=== PATIENT | male | born 1970 | race Caucasian/White ===

== ENCOUNTER 2018-02-06 17:08 | Emergency (ER) | payer OTHER ==
[~2018-02-06] VITALS: Ht 188 cm; Wt 134.5 kg
[2018-02-06 17:16] VITALS: TEMP 37.1; Ht 188 cm; Wt 134.5 kg
[2018-02-06] MEDS ORDERED: ALBUT/IPRATROP 3MG/0.5MG NEB 3 ML VIAL INH STA ×2 (19:11→20:34)
[2018-02-06] MEDS ORDERED: METHYLPREDNISOLONE 125 MG VIAL IV STA (19:11)
[2018-02-06 19:20] VITALS: O2SAT 95
[2018-02-06 19:45] LABS: BASO % 0.6 %; BASO ABS # 0.06 K/uL (0-0.2); EOS % 2.5 %; EOS ABS # 0.26 K/uL (0-0.5); HEMATOCRIT 45.8 % (42-52); HEMOGLOBIN 15.8 g/dL (14.0-18.0); IG# 0.03 K/uL (0.00-0.02); LYMPH ABS # 2.63 K/uL (1.2-3.4); MEAN CELL VOLUME 89.1 fL (80-100); MEAN CORPUSCULAR HEMOGLOBIN 30.7 pg (25-34); MEAN CORPUSCULAR HGB CONC 34.5 g/dl (32-36); MEAN PLATELET VOLUME 10.3 fL (7.4-10.4); MONO % 8.8 %; MONO ABS # 0.92 K/uL (0.11-0.59); NEUT % 62.8 %; PLATELET COUNT 230 K/uL (130-400); RED CELL DISTRIBUTION WIDTH CV 12.4 % (11.5-14.5)
[2018-02-06 20:07] LABS: ALBUMIN 3.4 gm/dl (3.4-5.0); CREATININE 0.94 mg/dl (0.60-1.40); POTASSIUM 3.3 mmol/L (3.5-5.1)
--- NOTE | 2018-02-06 20:10 | DIAGNOSTIC IMAGING REPORT ---
CHEST ONE VIEW PORTABLE CLINICAL HISTORY: 47 years-old Male presenting with EVALUATE RESPIRATORY DISTRESS.DYSPNEA. TECHNIQUE: Portable upright AP view of the chest was obtained. COMPARISON: None. FINDINGS: Atherosclerosis of aortic arch. Cardiac silhouette mildly enlarged. No focal opacity. No large effusion or pneumothorax. Osseous structures normal. Upper abdomen normal. IMPRESSION: 1. Apparent cardiac silhouette enlargement. Otherwise no acute cardiopulmonary disease. Electronically signed by: Christ Saldana M.D. 02/06/2018 8:09 PM Dictated Date/Time: 02/06/2018 8:08 PM
[2018-02-06 20:14] LABS: CKMB 4.5 ng/ml (0.5-3.6); TOTAL PROTEIN 7.6 gm/dl (6.4-8.2)
[2018-02-06] MEDS ORDERED: METOPROLOL TARTRATE 1 MG/ML VIAL IV STA (21:32)
[2018-02-06] MEDS ORDERED: ASPIRIN 81 MG CHEW PO STA (21:32)
[2018-02-06] MEDS ORDERED: NITROGLYCERIN 2% OINTMENT 30GM TUBE EXT ONE (21:45)
[2018-02-06] MEDS ORDERED: OPTIRAY 320 IV PRN (22:15)
--- NOTE | 2018-02-06 22:22 | DIAGNOSTIC IMAGING REPORT ---
(CHEST FOR PE) ANGIO WITH CLINICAL HISTORY: 47 years-old Male presenting with ^SOB, +dimer. TECHNIQUE: Multidetector CT angiography of the chest was performed after administration of intravenous contrast. 3-D volumetric and/or maximum intensity projection (MIP) images were subsequently reconstructed for review. IV contrast: None. A dose lowering technique was used consistent with the principles of ALARA (as low as reasonably achievable). COMPARISON: None. CT DOSE (mGy.cm): The estimated cumulative dose is 750.53 mGy.cm. FINDINGS: Port Crane Operator topogram: Unremarkable. Pulmonary vasculature: The study is suboptimal for the assessment of the pulmonary vascular tree secondary to timing of the contrast bolus and respiratory motion artifact. Allowing for limited image quality, no central filling defect to suggest pulmonary embolus. Main pulmonary artery is not enlarged. No flattening of the interventricular septum. No intracardiac filling defect. No reflux of contrast into the hepatic veins. Remaining chest: On soft tissue windows, normal thyroid and thoracic inlet. No axillary, supraclavicular, hilar, or mediastinal lymphadenopathy. Atherosclerosis of the aorta. Multichamber enlargement of the heart. Coronary artery calcification. No pericardial or pleural effusion. Hepatic steatosis. Cholelithiasis. On lung windows, respiratory motion artifact markedly degrades evaluation of the lung parenchyma. Allowing for this, no focal nodule or opacity. Central airways patent. On bone windows, normal osseous structures. IMPRESSION: 1. Allowing for suboptimal image quality, no evidence of pulmonary embolus. No acute intrathoracic pathology. 2. Cardiomegaly. 3. Hepatic steatosis. 4. Cholelithiasis. Electronically signed by: Christ Saldana M.D. 02/06/2018 10:20 PM Dictated Date/Time: 02/06/2018 10:12 PM
--- NOTE | 2018-02-07 01:33 | Medical Consult ---
Consultation Date of Consultation: Feb 07, 2018. Attending Physician: Reason for Consultation: Possible ER admission History of Present Illness Mr. Spear is a 47yo C male with history of HTN presenting with complaint of cough x 6-8 weeks. He states that it started with an episode of laryngitis leading to 3 weeks of productive cough which improved for approximately one week then resumed for the last three weeks. He states the cough is occasionally productive for clear sputum. It is worse at night and in the morning. He also reports nasal congestion and post nasal drip. He denies chest pain, shortness of breath, wheeze. He denies hemoptysis, sore throat, weight loss, chest pain or fevers. He has no TB exposure risk. He has been taking Mucinex for the cough which he states makes it worse due to drying the secretions and making them thicker. Patient is an active 1.5ppd smoker for the past 30 years but has decreased his cigarettes over the last few weeks due to cough. When he arrived to the ER he was found to be hypertensive at 170/130 and tachycardic. He was administered [id number], Nitro paste, Lopressor 5mg IV, DuoNebs x 2 and Solumedrol 125mg IV. He states he is feeling well at present and wishes to go home. Patient has been diagnosed with HTN in the past and was on medications but is not taking anything presently. Past Medical/Surgical History 1. Elevated troponin 2. Hypertension 3. Cough 4. Tobacco abuse Family History Cancer Hypertension Social History Smoking Status: Current Every Day Smoker Smokeless Tobacco Use: No Alcohol Use: occasionally Drug Use: none Marital Status: single Housing Status: lives alone Occupation Status: employed Allergies Uncoded Allergies: N (Allergy, Unknown, 12/24/02) NKDA (Allergy, Unknown, 12/24/02) Home Medications Denies daily medication use Current Inpatient Medications Current Inpatient Medications Medications (Trade) Dose Ordered Sig/Samantha Route Start Time Stop Time Status Last Admin Dose Admin Ioversol (Optiray 320) 110 ml UD PRN IV 02/06/18 22:15 02/10/18 22:14 Review of Systems Constitutional: No fever, No chills, No sweats, No weight loss, No weakness, No fatigue Eyes: No redness, No discharge ENT: + nasal symptoms, No unusual epistaxis, No sore throat, No trouble swallowing Respiratory: + cough, + sputum, + wheezing, No shortness of breath, No dyspnea on exertion, No dyspnea at rest, No hemoptysis Cardiovascular: No chest pain, No orthopnea, No edema, No palpitations Abdomen: No pain, No nausea, No vomiting, No diarrhea Physical Exam Date Time Temp Pulse Resp B/P (MAP) Pulse Ox O2 Delivery O2 Flow Rate FiO2 02/07/18 00:16 126/75 02/07/18 00:05 107 25 02/07/18 00:00 159/103 02/06/18 23:45 147/104 02/06/18 23:35 109 20 02/06/18 23:30 138/98 02/06/18 23:28 110 19 02/06/18 23:16 108 02/06/18 23:16 127/102 02/06/18 23:13 109 27 02/06/18 23:01 156/119 02/06/18 22:58 106 30 02/06/18 22:46 155/116 02/06/18 22:46 108 18 155/116 94 Room Air 02/06/18 22:43 107 16 02/06/18 22:30 173/120 02/06/18 22:28 104 17 02/06/18 22:23 161/102 02/06/18 22:23 118 161/102 02/06/18 21:30 116 26 94 Room Air 02/06/18 21:00 108 22 177/121 90 02/06/18 20:50 160/111 02/06/18 20:30 109 22 93 02/06/18 20:29 108 22 160/111 93 Room Air 02/06/18 19:34 104 24 170/108 94 Room Air 02/06/18 19:22 108 02/06/18 19:20 95 Room Air 02/06/18 17:16 37.1 109 20 177/133 92 Room Air General Appearance: WD/WN, no apparent distress Head: normocephalic, atraumatic Eyes: normal inspection, PERRL, EOMI ENT: hearing grossly normal (cobblestoning of posterior pharynx with PND) Neck: supple, no adenopathy, no JVD Respiratory/Chest: chest non-tender, no respiratory distress, no accessory muscle use Cardiovascular: regular rate, rhythm, no edema, no gallop, no JVD, no murmur, normal peripheral pulses Abdomen/GI: normal bowel sounds, non tender, soft, no organomegaly Laboratory Results Last 24 Hours Test 02/06/18 19:27 02/06/18 20:45 02/07/18 00:30 White Blood Count 10.50 K/uL Red Blood Count 5.14 M/uL Hemoglobin 15.8 g/dL Hematocrit 45.8 % Mean Corpuscular Volume 89.1 fL Mean Corpuscular Hemoglobin 30.7 pg Mean Corpuscular Hemoglobin Concent 34.5 g/dl Platelet Count 230 K/uL Mean Platelet Volume 10.3 fL Neutrophils (%) (Auto) 62.8 % Lymphocytes (%) (Auto) 25.0 % Monocytes (%) (Auto) 8.8 % Eosinophils (%) (Auto) 2.5 % Basophils (%) (Auto) 0.6 % Neutrophils # (Auto) 6.60 K/uL Lymphocytes # (Auto) 2.63 K/uL Monocytes # (Auto) 0.92 K/uL Eosinophils # (Auto) 0.26 K/uL Basophils # (Auto) 0.06 K/uL RDW Standard Deviation 40.0 fL RDW Coefficient of Variation 12.4 % Immature Granulocyte % (Auto) 0.3 % Immature Granulocyte # (Auto) 0.03 K/uL Sodium Level 135 mmol/L Potassium Level 3.3 mmol/L Chloride Level 102 mmol/L Carbon Dioxide Level 25 mmol/L Anion Gap 8.0 mmol/L Blood Urea Nitrogen 7 mg/dl Creatinine 0.94 mg/dl Est Creatinine Clear Calc Drug Dose 138.7 ml/min Estimated GFR () 109.9 Estimated GFR (Non- 94.8 BUN/Creatinine Ratio 7.7 Random Glucose 103 mg/dl Calcium Level 9.0 mg/dl Total Bilirubin 0.6 mg/dl Aspartate Amino Transf (AST/SGOT) 38 U/L Alanine Aminotransferase (ALT/SGPT) 51 U/L Alkaline Phosphatase 81 U/L Total Creatine Kinase 822 U/L Creatine Kinase MB 4.5 ng/ml Creatine Kinase MB Ratio 0.5 Pro-B-Type Natriuretic Peptide 314 pg/ml Total Protein 7.6 gm/dl Albumin 3.4 gm/dl Globulin 4.2 gm/dl Albumin/Globulin Ratio 0.8 Bedside D-Dimer > 450 ng/mlFEU Bedside Troponin I 0.050 ng/ml Urine Color YELLOW Urine Appearance CLEAR Urine pH 6.0 Urine Specific Leslie > 1.045 Urine Protein NEG Urine Glucose (UA) NEG Urine Ketones NEG Urine Occult Blood NEG Urine Nitrite NEG Urine Bilirubin NEG Urine Urobilinogen NEG Urine Leukocyte Esterase NEG Assessment & Plan 37yo male with history of HTN, active smoker presenting with 6-8 week history of cough. Patient hypertensive in the ER 170/130 with mild elevation of troponin of 0.05. He denies chest pain/palpitations, no exertional symptoms. 1. Elevated troponin - no evidence of ischemia on EKG, patient without chest pain or symptoms otherwise concerning for ACS. Possibly secondary to hypertensive episode -Repeat troponins to assess trend. If decreasing, patient can be discharged home with outpatient followup. If increasing then he will be admitted for further cardiac workup - Recommend ASA 81mg po daily 2. Hypertension - patient with history of same, not presently on medications. Repeat BP during encounter 148/101. He needs to be on antihypertensive medications. -Recommend discharge with prescription for chlorthalidone 25mg po daily. He will most likely need a second antihypertensive agent to achieve target blood pressure, however, this will be better addressed with his PCP -Recommend K supplementation while in ER as K=3.3 3. Cough - no evidence of PNA, no PE. Most likely secondary to URI with post- infectious bronchitis or RAD. Patient is a heavy smoker and most likely has some component of pulmonary compromise. -Recommend discharge on a short steroid taper and give him a prescription for an albuterol inhaler to be used as needed for SOB or wheeze 4. Tobacco abuse - patient actively using 1.5 ppd for the last 30 years. Discussed briefly the health risks associated with this behavior and encouraged quitting. Patient states that he may use this illness as a reason to quit smoking. Recommend followup with PCP within 1 week for chronic medical problems Thank you for this consult. Please notify me if troponin is elevated and patient requires hospital admission.
--- NOTE | 2018-02-07 01:38 | EMERGENCY ROOM VISIT NOTE ---
History Report prepared by Edouard: Yari franks Under the Supervision of: Dr. Sy Figueroa M.D. First contact with patient: 19:00 Chief Complaint: REFERRED BY DOCTOR Stated Complaint: HEART ISSUES History of Present Illness The patient is a 47 year old male who presents to the Emergency Room due to a referral by a doctor that occurred just prior to arrival. The patient states that he went to [facility] for a cough that he has had for 2 months. The patient states that they were concerned about his heart and sent him here .He states that he gets short of breath when lying down and when he coughs. He notes that he has chest pain when he coughs because it is sore from coughing and he coughed so much that he vomited twice last night. The patient complains of sinus drainage. He does not have any baseline chest pain otherwise. He notes that he has a history of hypertension and was on medication for it at one point, but isn't anymore. He notes he is a smoker and has been smoking less since he has had difficulty breathing. He notes he smokes about a pack a day and has been for 30 years. Pt denies change in weight, swelling in his legs, LOC, headache, fevers, chills , diaphoresis, visual changes, neck pain, nausea, abdominal pain, back pain, melena, hematochezia, urinary symptoms, numbness, weakness, lymphadenopathy, rash, or other complaints. Source of History: patient Onset: prior to arrival Position: other (global) Quality: other (referral/ cough) Timing: other (episode) Associated Symptoms: + chest pain, + SOB, + vomiting Note: The patient complains of sinus drainage. Review of Systems See HPI for pertinent positives and negatives. A total of ten systems were reviewed and were otherwise negative. Past Medical & Surgical Medical Problems: (1) HTN (hypertension) Family History Cancer Hypertension Social History Smoking Status: Current Every Day Smoker Alcohol Use: occasionally Marital Status: single Housing Status: lives alone Occupation Status: employed Current/Historical Medications Scheduled Chlorthalidone (Hygroton), 25 MG PO DAILY Prednisone (Prednisone), 50 MG PO DAILY Allergies Uncoded Allergies: N (Allergy, Unknown, 12/24/02) NKDA (Allergy, Unknown, 12/24/02) Physical Exam Vital Signs Date Time Temp Pulse Resp B/P (MAP) Pulse Ox O2 Delivery O2 Flow Rate FiO2 02/07/18 02:06 107 18 133/85 94 Room Air 02/07/18 01:10 148/101 02/07/18 01:09 148/104 02/07/18 01:08 146/104 02/07/18 00:21 108 24 02/07/18 00:16 126/75 02/07/18 00:05 107 25 02/07/18 00:00 159/103 02/06/18 23:45 147/104 02/06/18 23:35 109 20 02/06/18 23:30 138/98 02/06/18 23:28 110 19 02/06/18 23:16 108 02/06/18 23:16 127/102 02/06/18 23:13 109 27 02/06/18 23:01 156/119 02/06/18 22:58 106 30 02/06/18 22:46 155/116 02/06/18 22:46 108 18 155/116 94 Room Air 02/06/18 22:43 107 16 02/06/18 22:30 173/120 02/06/18 22:28 104 17 02/06/18 22:23 161/102 02/06/18 22:23 118 161/102 02/06/18 21:30 116 26 94 Room Air 02/06/18 21:00 108 22 177/121 90 02/06/18 20:50 160/111 02/06/18 20:30 109 22 93 02/06/18 20:29 108 22 160/111 93 Room Air 02/06/18 19:34 104 24 170/108 94 Room Air 02/06/18 19:22 108 02/06/18 19:20 95 Room Air 02/06/18 17:16 37.1 109 20 177/133 92 Room Air Physical Exam GENERAL: Awake, alert, well-appearing, in no distress HENT: Normocephalic, atraumatic. Oropharynx unremarkable. EYES: Normal conjunctiva. Sclera non-icteric. NECK: Supple. No nuchal rigidity. FROM. No masses. RESPIRATORY: Diminished breath sounds. Scattered wheezes. Heavy cough. No rales. Normal respiratory effort. CARDIAC: Tachycardic rate. Normal rhythm. No murmurs. No rubs. Extremities warm and well perfused. Pulses equal. No JVD. GI: Soft, non-distended. No tenderness to palpation. No rebound or guarding. No masses. RECTAL: Deferred. MUSCULOSKELETAL: Atraumatic. Chest examination reveals no tenderness. The back is symmetrical on inspection without obvious abnormality. There is no CVA tenderness to palpation. No joint edema. LOWER EXTREMITIES: Calves are equal size bilaterally and non-tender. No edema. No discoloration. NEURO: Normal sensorium. No sensory or motor deficits noted. SKIN: No rash or jaundice noted. Medical Decision & Procedures ER Provider Diagnostic Interpretation: Radiology results as stated below per my review and radiologist interpretation: CHEST ONE VIEW PORTABLE CLINICAL HISTORY: 47 years-old Male presenting with EVALUATE RESPIRATORY DISTRESS.DYSPNEA. TECHNIQUE: Portable upright AP view of the chest was obtained. COMPARISON: None. FINDINGS: Atherosclerosis of aortic arch. Cardiac silhouette mildly enlarged. No focal opacity. No large effusion or pneumothorax. Osseous structures normal. Upper abdomen normal. IMPRESSION: 1. Apparent cardiac silhouette enlargement. Otherwise no acute cardiopulmonary disease. Electronically signed by: Christ Saldana M.D. 02/06/2018 8:09 PM Dictated Date/Time: 02/06/2018 8:08 PM (CHEST FOR PE) ANGIO WITH CLINICAL HISTORY: 47 years-old Male presenting with ^SOB, +dimer. TECHNIQUE: Multidetector CT angiography of the chest was performed after administration of intravenous contrast. 3-D volumetric and/or maximum intensity projection (MIP) images were subsequently reconstructed for review. IV contrast: None. A dose lowering technique was used consistent with the principles of ALARA (as low as reasonably achievable). COMPARISON: None. CT DOSE (mGy.cm): The estimated cumulative dose is 750.53 mGy.cm. FINDINGS: Assembler Body topogram: Unremarkable. Pulmonary vasculature: The study is suboptimal for the assessment of the pulmonary vascular tree secondary to timing of the contrast bolus and respiratory motion artifact. Allowing for limited image quality, no central filling defect to suggest pulmonary embolus. Main pulmonary artery is not enlarged. No flattening of the interventricular septum. No intracardiac filling defect. No reflux of contrast into the hepatic veins. Remaining chest: On soft tissue windows, normal thyroid and thoracic inlet. No axillary, supraclavicular, hilar, or mediastinal lymphadenopathy. Atherosclerosis of the aorta. Multichamber enlargement of the heart. Coronary artery calcification. No pericardial or pleural effusion. Hepatic steatosis. Cholelithiasis. On lung windows, respiratory motion artifact markedly degrades evaluation of the lung parenchyma. Allowing for this, no focal nodule or opacity. Central airways patent. On bone windows, normal osseous structures. IMPRESSION: 1. Allowing for suboptimal image quality, no evidence of pulmonary embolus. No acute intrathoracic pathology. 2. Cardiomegaly. 3. Hepatic steatosis. 4. Cholelithiasis. Electronically signed by: Christ Saldana M.D. 02/06/2018 10:20 PM Dictated Date/Time: 02/06/2018 10:12 PM Laboratory Results 02/06/18 19:27 Red Blood Count 5.14, Mean Corpuscular Volume 89.1, Mean Corpuscular Hemoglobin 30.7, Mean Corpuscular Hemoglobin Concent 34.5, Mean Platelet Volume 10.3, Neutrophils (%) (Auto) 62.8, Lymphocytes (%) (Auto) 25.0, Monocytes (%) (Auto) 8.8, Eosinophils (%) (Auto) 2.5, Basophils (%) (Auto) 0.6, Neutrophils # (Auto) 6.60, Lymphocytes # (Auto) 2.63, Monocytes # (Auto) 0.92, Eosinophils # (Auto) 0.26, Basophils # (Auto) 0.06 02/06/18 19:27 Test 02/06/18 19:27 02/06/18 20:45 02/07/18 00:30 02/07/18 01:29 White Blood Count 10.50 K/uL (4.8-10.8) Red Blood Count 5.14 M/uL (4.7-6.1) Hemoglobin 15.8 g/dL (14.0-18.0) Hematocrit 45.8 % (42-52) Mean Corpuscular Volume 89.1 fL (80-100) Mean Corpuscular Hemoglobin 30.7 pg (25-34) Mean Corpuscular Hemoglobin Concent 34.5 g/dl (32-36) Platelet Count 230 K/uL (130-400) Mean Platelet Volume 10.3 fL (7.4-10.4) Neutrophils (%) (Auto) 62.8 % Lymphocytes (%) (Auto) 25.0 % Monocytes (%) (Auto) 8.8 % Eosinophils (%) (Auto) 2.5 % Basophils (%) (Auto) 0.6 % Neutrophils # (Auto) 6.60 K/uL (1.4-6.5) Lymphocytes # (Auto) 2.63 K/uL (1.2-3.4) Monocytes # (Auto) 0.92 K/uL (0.11-0.59) Eosinophils # (Auto) 0.26 K/uL (0-0.5) Basophils # (Auto) 0.06 K/uL (0-0.2) RDW Standard Deviation 40.0 fL (36.4-46.3) RDW Coefficient of Variation 12.4 % (11.5-14.5) Immature Granulocyte % (Auto) 0.3 % Immature Granulocyte # (Auto) 0.03 K/uL (0.00-0.02) Anion Gap 8.0 mmol/L (3-11) Est Creatinine Clear Calc Drug Dose 138.7 ml/min Estimated GFR () 109.9 Estimated GFR (Non- 94.8 BUN/Creatinine Ratio 7.7 (10-20) Calcium Level 9.0 mg/dl (8.5-10.1) Total Bilirubin 0.6 mg/dl (0.2-1) Aspartate Amino Transf (AST/SGOT) 38 U/L (15-37) Alanine Aminotransferase (ALT/SGPT) 51 U/L (12-78) Alkaline Phosphatase 81 U/L (45-117) Total Creatine Kinase 822 U/L (39-308) Creatine Kinase MB 4.5 ng/ml (0.5-3.6) Creatine Kinase MB Ratio 0.5 (0-3.0) Pro-B-Type Natriuretic Peptide 314 pg/ml (0-450) Total Protein 7.6 gm/dl (6.4-8.2) Albumin 3.4 gm/dl (3.4-5.0) Globulin 4.2 gm/dl (2.5-4.0) Albumin/Globulin Ratio 0.8 (0.9-2) Bedside D-Dimer > 450 ng/mlFEU (0-450) Urine Color YELLOW Urine Appearance CLEAR (CLEAR) Urine pH 6.0 (4.5-7.5) Urine Specific [place] > 1.045 (1.000-1.030) Urine Protein NEG (NEG) Urine Glucose (UA) NEG (NEG) Urine Ketones NEG (NEG) Urine Occult Blood NEG (NEG) Urine Nitrite NEG (NEG) Urine Bilirubin NEG (NEG) Urine Urobilinogen NEG (NEG) Urine Leukocyte Esterase NEG (NEG) Bedside Troponin I 0.040 ng/ml (0-0.045) Laboratory results reviewed by me Medications Administered Medications (Trade) Dose Ordered Sig/Samantha Route Start Time Stop Time Status Last Admin Dose Admin Albuterol/ Ipratropium (Duoneb) 3 ml NOW STAT INH 02/06/18 19:11 02/06/18 19:12 DC 02/06/18 19:22 3 ML Methylprednisolone Sodium Succinate (Solu-Medrol IV) 125 mg NOW STAT IV 02/06/18 19:11 02/06/18 19:12 DC 02/06/18 19:34 125 MG Albuterol/ Ipratropium (Duoneb) 3 ml NOW STAT INH 02/06/18 20:34 02/06/18 20:35 DC 02/06/18 20:37 3 ML Aspirin (Aspirin Chew) 324 mg NOW STAT PO 02/06/18 21:32 02/06/18 21:33 DC 02/06/18 22:23 324 MG Metoprolol Tartrate (Lopressor Iv) 5 mg NOW STAT IV 02/06/18 21:32 02/06/18 21:33 DC 02/06/18 22:23 5 MG Nitroglycerin (Nitroglycerin 2% Oint) 0.5 inch NOW ONCE EXT 02/06/18 21:45 02/06/18 21:46 DC 02/06/18 22:23 0.5 INCH ECG Per My Interpretation Indication: SOB/dyspnea Rate (beats per minute): 101 Rhythm: sinus tachycardia Findings: PAC, no acute ischemic change, other (left atrial enlargement) ED Course 1903: The patient was evaluated in room C1B. A complete history and physical exam was performed. Review of EMR showed a history of hypertension. Otherwise no record of contributing issues found. The patient went to [facility] and they were concerned for CHF so sent him here. 1910: Ordered Solu-Medrol 125 mg IV, Duoneb 3 ml INH. 1999: I reevaluated the patient and he is doing well. 2033: Ordered Duoneb 3 ml INH. 2128: I reevaluated the patient and updated him on his results. I notified him the he is going to CT. 2131: Ordered Lopressor Iv 5 mg IV, Aspirin 324 mg PO. 2144: Ordered Nitroglycerin 0.5 inch EXT. 2324: I reevaluated the patient and he is doing well. I updated him on the plan and he verbally agrees and understands. 2339: Discussed the patient's case with Dr. Dow- [facility] [facility]. The patient will be evaluated for further treatment and disposition. 0117: Hospitalist recommended repeat troponin and medication management if troponin normal. Patient reassessed. Troponin ordered. 0210: Troponin negative. Discussed with Dr. Dow. Reevaluated the patient. He is comfortable and prefers outpatient treatment. Chlorthalidone, prednisone , albuterol MDI, Hycodan home pack ordered. Return instructions outlined. Patient discharged. Medical Decision Triage Nursing notes reviewed and agree them. The patient's history was concerning for shortness of breath, cough, chest pain. Differential diagnosis: Etiologies such as cardiac ischemia, aortic dissection, pulmonary embolism, pneumonia, pneumothorax, musculoskeletal, infections, pericarditis, myocarditis , esophageal rupture, gastrointestinal, as well as others were entertained. Physical examination: As above. ER treatment provided: DuoNeb 2 IV Solu-Medrol On reassessment the patient felt better. Aspirin Nitropaste 1/2 inch Lopressor 5 mg IV On reassessment the patient was doing significantly better. Oral potassium Oral prednisone Albuterol MDI Oral chlorthalidone 25 mg Diagnostic interpretation by me: The electrocardiogram revealed tachycardia without acute ischemic change. The labs revealed an unremarkable CBC and chemistry panel. The patient had an elevated d-dimer and mild elevation of his troponin. Total CK moderately elevated. Urinalysis negative. Repeat troponin was normal. Negative delta. Imaging studies: Chest x-ray as above Consultation: A consultation was placed with the hospitalist, Dr. Dow. The case was discussed and diagnostics were reviewed. The patient was evaluated in the ER for further treatment. She requested a repeat troponin and this was performed. Repeat troponin was negative. She recommended close outpatient follow-up. Case management was notified to contact his primary clinic in the morning. The patient is comfortable with going home and prefers to do so. Internal medicine recommended initiation of chlorthalidone 25 mg, a prednisone course, albuterol, and baby aspirin. This was done. Patient is a long history of smoking and has had respiratory issues. I suspect this may be the earliest problems with COPD. He had tachycardia and hypertension. He was previously on antihypertensives. The troponin may be just from the combination of hypertension and tachycardia which is likely secondary to his respiratory issues. The patient will be treated symptomatically. He was also given a Hycodan home pack. By the evaluation outlined above other emergent etiologies such as those listed in the differential, as well as others, were deemed relatively unlikely. The patient was educated about the findings as listed above. All questions were answered and the patient was pleased with the treatment. Return instructions were outlined and the patient was discharged in stable condition. The patient was referred to his primary clinic tomorrow for follow-up for a recheck of the current condition. Medication Reconcilliation Current Medication List: was personally reviewed by me Blood Pressure Screening Patient's blood pressure: Elevated blood pressure Will be further monitored by the hospitalist. Consults Time Called: [id number] Consulting Physician: Dr. Caitlin THAKKAR Hospitalist Returned Call: 7 Discussed the patient's case with Dr. Caitlin THAKKAR Hospitalist. The patient will be evaluated for further treatment and disposition. Impression Primary Impression: SOB (shortness of breath) Additional Impressions: Elevated troponin Tachycardia Scribe Attestation The scribe's documentation has been prepared under my direction and personally reviewed by me in its entirety. I confirm that the note above accurately reflects all work, treatment, procedures, and medical decision making performed by me. Departure Information Dispostion Being Evaluated By Hospitalist Prescriptions Prednisone (Prednisone) 50 Mg Tab 50 MG PO DAILY for 4 Days, #4 TAB Prov: Sy Figueroa MD 02/07/18 Chlorthalidone (HYGROTON) 25 Mg Tab 25 MG PO DAILY for 15 Days, #15 TAB Prov: Sy Figueroa MD 02/07/18 Referrals Jimbo Worthington M.D. (PCP) Patient Instructions My [facility] Additional Instructions Baby aspirin 81 mg daily until directed otherwise by your primary physician Chlorthalidone 25 mg daily for blood pressure until directed otherwise by your primary physician. Albuterol Inhaler: Take 2 puffs four times daily for five days, then as needed. Prednisone 50mg: Once daily until the prescription is finished. It is best to take this earlier in the day as some patients note occasional difficulty falling asleep when taken in the late evening. Hycodan syrup: use one teaspoon every six hours only as needed for severe cough. May cause drowsiness. No driving if using this medication. Acetaminophen(Tylenol) may be used for fever or pain. Use 1000mg every six hours as needed. Avoid using more than 4000mg in a 24 hour period. Review the package insert for all your medications. This is necessary as important health information is provided for your benefit and current care. Rest and drink plenty of fluids. Avoid smoke/smoking, fumes, dust, or any triggers in the past that may have affected your breathing. Continue current medications. Return to the ER for chest pain, difficulty breathing, fevers, vomiting, worsening of your condition, or as needed. Follow up with your primary physician later this morning to schedule an appointment for a recheck of your current condition. ER case management will also be notifying the clinic to assist you in this appointment follow-up. Problem Qualifiers
[2018-02-07] MEDS ORDERED: CHLORTHALIDONE 25 MG TAB PO STA (02:10)
[2018-02-07] MEDS ORDERED: POTASSIUM CHLORIDE 10 MEQ TABCR PO STA (02:10)
[2018-02-07] MEDS ORDERED: HYG/25 PO (02:13)
[2018-02-07] MEDS ORDERED: PRED50TA PO (02:13)
[2018-02-07] MEDS ORDERED: ALBUTEROL HFA 8 GM INHALER INH ONE (02:15)
[2018-02-07] MEDS ORDERED: HYCODAN 60ML BOTTLE HOMEPACK PO ONE (02:15)
[2018-02-07 02:35] VITALS: BP 141/96; PULSE 108; O2SAT 95
== END 2018-02-07 02:36 | disposition home or self-care (01) ==
LOC: C.EDB 17:09 → C.EDC 02-07 02:36
DX: R06.02 Shortness of breath (principal); R79.89 Other specified abnormal findings of blood chemistry; R00.0 Tachycardia, unspecified; R05 Cough; R11.10 Vomiting, unspecified; I10 Essential (primary) hypertension; F17.210 Nicotine dependence, cigarettes, uncomplicated; Z82.49 Family history of ischemic heart disease and other diseases of the circulatory system

== ENCOUNTER → 2018-02-26 | Outpatient (CLI) | payer OTHER ==
[2018-02-26 13:12] LABS: HEMATOCRIT 46.4 % (42-52); HEMOGLOBIN 15.5 g/dL (14.0-18.0); MEAN CELL VOLUME 91.3 fL (80-100); MEAN CORPUSCULAR HEMOGLOBIN 30.5 pg (25-34); MEAN CORPUSCULAR HGB CONC 33.4 g/dl (32-36); MEAN PLATELET VOLUME 10.3 fL (7.4-10.4); PLATELET COUNT 267 K/uL (130-400); RED CELL DISTRIBUTION WIDTH CV 12.3 % (11.5-14.5); RED CELL DISTRIBUTION WIDTH SD 41.4 fL (36.4-46.3); WHITE BLOOD COUNT 8.33 K/uL (4.8-10.8)
[2018-02-26 13:23] LABS: ALBUMIN 3.6 gm/dl (3.4-5.0); ALT/SGPT 46 U/L (12-78); AST/SGOT 28 U/L (15-37); BLOOD UREA NITROGEN 11 mg/dl (7-18); CALCIUM 8.7 mg/dl (8.5-10.1); CARBON DIOXIDE 28 mmol/L (21-32); CHOLESTEROL 160 mg/dl (0-200); CREATININE 0.96 mg/dl (0.60-1.40); GLUCOSE 111 mg/dl (70-99); POTASSIUM 3.4 mmol/L (3.5-5.1); SODIUM 135 mmol/L (136-145)
[2018-02-26 13:27] LABS: ALKALINE PHOSPHATASE 78 U/L (45-117); LDL CHOLESTEROL CALCULATED 60 mg/dl; TOTAL PROTEIN 7.4 gm/dl (6.4-8.2)
== END | disposition home or self-care (01) ==
LOC: C.LABPVFM 07:33
PROVIDERS: ATTEND Family Medicine
DX: Z00.00 Encounter for general adult medical examination without abnormal findings (principal); R73.9 Hyperglycemia, unspecified; E78.1 Pure hyperglyceridemia

== ENCOUNTER → 2018-07-04 | Outpatient (CLI) | payer OTHER ==
[2018-07-04 12:55] LABS: ALBUMIN 3.7 gm/dl (3.4-5.0); ALKALINE PHOSPHATASE 64 U/L (45-117); ALT/SGPT 57 U/L (12-78); AST/SGOT 36 U/L (15-37); BLOOD UREA NITROGEN 7 mg/dl (7-18); CALCIUM 9.2 mg/dl (8.5-10.1); CARBON DIOXIDE 25 mmol/L (21-32); GLUCOSE 112 mg/dl (70-99); POTASSIUM 3.5 mmol/L (3.5-5.1); SODIUM 139 mmol/L (136-145); TOTAL PROTEIN 7.5 gm/dl (6.4-8.2)
[2018-07-04 13:00] LABS: HEMOGLOBIN A1C 5.6 % (4.5-5.6)
== END | disposition home or self-care (01) ==
LOC: C.LABPVFM 11:00
PROVIDERS: ATTEND Family Medicine
DX: M25.561 Pain in right knee (principal)

== ENCOUNTER 2021-07-06 10:39 | Observation (INO) ==
[2021-07-06] MEDS ORDERED: ASPIRIN CHEW 324 MG PO STA (10:53)
[2021-07-06] MEDS ORDERED: SODIUM CHLORIDE 0.9% 1000ML 500 ML IV ONE (11:03)
[2021-07-06] MEDS ORDERED: METOPROLOL TARTRATE 1 MG/ML VIAL IV STA (11:03)
[2021-07-06] MEDS ORDERED: METOPROLOL TARTRATE 1 MG/ML VIAL IV ONE (11:04)
[2021-07-06] MEDS ORDERED: HEPARIN SOD (PORCINE) 1000 UNIT/ML ONE (11:05)
[2021-07-06] MEDS ORDERED: TICAGRELOR 90 MG TAB PO ONE ×2 (11:05→12:15)
[2021-07-06] MEDS ORDERED: MIDAZOLAM HCL 1 MG/ML 2ML VIAL ONE (11:07)
[2021-07-06] MEDS ORDERED: fentaNYL citrate 100 MCG/2 ML VIAL ONE (11:07)
[2021-07-06] MEDS ORDERED: niCARdipine HCL INJ 2.5 MG/ML 10 ML AMP ONE (11:07)
[2021-07-06] MEDS ORDERED: HEPARIN (PORCINE) 1000 UNIT/ML 10 ML (CATH LAB USE ONLY) ONE ×2 (11:07→11:47)
[2021-07-06] MEDS ORDERED: NITROGLYCERIN/D5W 100MCG/ML 20ML SYR ONE (11:08)
--- NOTE | 2021-07-06 11:11 | Emergency Department Note ---
Impression & Plan Acute TN, inferior wall, Chest pain ED Provider Note NAME: JANA LINN AGE: 50 SEX: M : 1970 ARRIVES VIA: Walk-In INFORMANT: Patient, ED PROVIDER(S): Abdiaziz Watkins DO CHIEF COMPLAINT: Chest pain HPI: The patient is a 50-year-old male who is a history of tobacco use as well as hypertension who presented to the emergency department for an evaluation of chest pain. The patient has noticed intermittent episodes of chest pain which was substernal for the last 7 days. The patient states the pain waxes and wanes. He does notice that it radiates to his right arm. He describes right upper extremity tingling. He denies having any lower extremity swelling. He denies having any shortness of breath. He states that this morning the pain became more constant so he presented to the emergency department for further e valuation. The patient denies having any fever or cough. He was not seen by provider prior to coming to the emergency department. The patient has never had a heart attack or heart catheterization. ROS: See above HPI for pertinent positives & negatives. A total of 10 systems reviewed and were otherwise negative. PAST MEDICAL HISTORY: See Below PAST SURGICAL HISTORY: See Below FAMILY HISTORY: See Below SOCIAL HISTORY: See Below HOME MEDICATIONS: See Below ALLERGIES: See Below VITALS: See Below PHYSICAL EXAMINATION: GENERAL: Patient is awake alert in no acute distress patient is resting comfortably and showing no signs of anxiety EYES: The conjunctivae are clear. The pupils are round and reactive. EARS, NOSE, MOUTH AND THROAT: The nose is without any evidence of any deformity. NECK: The neck is nontender and supple. RESPIRATORY: Normal respiratory effort was noted. Scattered wheezing was noted in both upper lung peñaloza. There is no tachypnea or conversational dyspnea. CARDIOVASCULAR: Regular rate and rhythm noted there no murmurs rubs or gallops normal S1 normal S2. GASTROINTESTINAL: The abdomen is soft. Abdomen is nontender. MUSCULOSKELETAL/EXTREMITIES: There is no evidence of gross deformity full range of motion is noted in the hips and shoulders. SKIN: Trace pedal edema was noted bilaterally. NEUROLOGIC: Patient is awake alert and oriented x3 strength is symmetric patellar reflexes are 2+ bilaterally MEDICAL DECISION MAKING: The patient is a 50-year-old male who is a history of tobacco use who presented to the emergency department for evaluation of chest pain. The patient had an EKG which was consistent with acute ischemia. Given his ongoing symptoms for the last few days he was made a heart alert. He was treated with aspirin in the emergency department. I discussed the patient's laboratory and radiographic studies with him. I discussed this case with the care professionals. He was evaluated in the emergency department by the care professionals. The patient was agreeable to heart catheterization. He appeared to be a good candidate. He was taken to the [facility]. On reevaluation he was feeling much better. He was treated with beta-blockers as well as IV fluids. Triage Nursing notes reviewed. Prior medical records reviewed Vital Signs: reviewed and remarkable for tachycardia and hypertension. Differential diagnosis: Cardiac ischemia, aortic dissection, pulmonary embolism, pneumothorax, pneumonia, pericarditis, myocarditis, esophageal rupture, GERD, cholecystitis, pancreatitis, musculoskeletal, as well as other pathologies. ER treatment provided: See below Diagnostics interpreted by me: ECG: EKG was obtained in the emergency department. My interpretation is sinus tachycardia at 101 bpm. There is no ectopy. Acute ST segment elevations were noted in the inferior leads with reciprocal changes in the high lateral as well as the anterior leads. I feel this is consistent with acute inferior ischemia. This was compared to a tracing from September 29, 2018. The ischemic changes are new compared to the previous tracing. Cardiac Monitoring: An order was placed for continuous cardiac monitoring. The monitor shows a rate of 82 bpm with sinus rhythm. Laboratory studies: As stated above and show below. Imaging studies: See below Consultation(s): The patient was evaluated by Dr. Schofield in the emergency department. He was felt to be a good candidate for cardiac catheterization. He was taken to the cardiac catheterization lab. ED COURSE: Procedures: none PDMP:reviewed and no issues Critical Care: I have personally spent greater than 35 minutes of critical care time in the direct management of this patient. This includes bedside care, interpretation o f diagnostic studies, and testing, discussion with consultants, patient, and family members, and other required patient management activities. This 35 minutes is in excess of all separately billable procedures. Past Med/Surg History Medical History (Updated 07/06/21 @ 14:43 by Abdiaziz Watkins DO) Abdominal pain Alcohol abuse Gout HTN (hypertension) Tobacco abuse Surgical History History of cholecystectomy FALL 2017 [facility] History of tooth extraction Family History Father Cancer Social History Smoking Status: Current every day smoker Tobacco Type: Cigarettes Cigarettes Per Day: 1 PPD SINCE AGE 16; Second Hand Exposure: No; Hx Alcohol Use: Yes Alcohol type: hard liquor Hx Substance Use: No Preferred Language: Micronesian Communication Ability: Effective Visual Impairment: No Limitations Windshield Wiper Repairer Required: No Beliefs That Will Affect Care: None Current Living Situation: Alone Current Living Situation Comment: has roommate Feels Safe at Home: Yes Assistive Devices: Glasses Allergies Allergies Allergy/AdvReac Type Severity Reaction Status Date / Time No Known Allergies Allergy Verified 01/12/21 13:17 Home Meds Home Medications Medication Instructions Recorded Confirmed cholecalciferol (vitamin D3) 50 10,000 units PO QAM cap 04/15/19 01/12/21 mcg (2,000 unit) capsule fluticasone propionate 50 See Rx Instructions INTRANASAL 07/20/19 01/12/21 mcg/actuation nasal DAILY PRN gm spray,suspension aspirin 81 mg tablet,delayed 81 mg PO QAM 07/21/19 01/12/21 release Previous Rx's Medication Instructions Recorded amlodipine 10 mg tablet 10 mg PO DAILY #30 tab 01/12/21 chlorthalidone 25 mg tablet 25 mg PO QAM #30 tab 01/12/21 colchicine 0.6 mg tablet See Rx Instructions PO .COMPLEX 01/12/21 PRN #3 tab metoprolol succinate 50 mg 50 mg PO QAM #30 tab 01/12/21 tablet,extended release 24 hr potassium chloride 20 mEq 20 meq PO DAILY #30 tab 01/12/21 tablet,extended release prednisone 50 mg tablet 50 mg PO DAILY #5 tab 01/12/21 allopurinol 100 mg tablet 200 mg PO DAILY #60 tab 04/24/21 Results & Data (ED) Vital Signs Vital Signs - 24 hr 07/06/21 10:46 07/06/21 11:01 07/06/21 11:05 Temperature 36.8 C Temperature Source Temporal Artery Scan Pulse Rate 105 H 105 H 103 H Pulse Rate [Right Finger] Pulse Rate from SpO2 Sensor 105 H Pulse Rhythm [Right Finger] Pulse Strength [Right Finger] Respiratory Rate 18 20 Respiratory Effort / Characteristics Non-Labored Spontaneous Respiratory Depth Normal Respiratory Pattern Blood Pressure 182/99 H 166/103 H 166/103 H Blood Pressure [Left Arm] Blood Pressure Mean 126 124 Blood Pressure Mean [Left Arm] Blood Pressure Position Sitting Blood Pressure Position [Left Arm] Pulse Oximetry 97 96 Oxygen Delivery Method Room Air Sepsis Recent Fever Within 48 Hours No Sepsis New/Unexplained Change in Mental Status N/A Sepsis Action Taken by Nursing No Action Required 07/06/21 11:10 07/06/21 11:11 07/06/21 12:30 Temperature Temperature Source Pulse Rate 97 H Pulse Rate [Right Finger] 89 Pulse Rate from SpO2 Sensor Pulse Rhythm [Right Finger] Regular Pulse Strength [Right Finger] Normal Respiratory Rate 22 20 Respiratory Effort / Characteristics Non-Labored Respiratory Depth Normal Respiratory Pattern Regular Blood Pressure 161/91 H Blood Pressure [Left Arm] 144/91 H Blood Pressure Mean 114 Blood Pressure Mean [Left Arm] 108 Blood Pressure Position Blood Pressure Position [Left Arm] Sitting Pulse Oximetry 98 95 Oxygen Delivery Method Room Air Room Air Sepsis Recent Fever Within 48 Hours Sepsis New/Unexplained Change in Mental Status Sepsis Action Taken by Nursing 07/06/21 12:45 07/06/21 13:00 07/06/21 13:15 Temperature Temperature Source Pulse Rate Pulse Rate [Right Finger] 89 86 85 Pulse Rate from SpO2 Sensor Pulse Rhythm [Right Finger] Regular Regular Regular Pulse Strength [Right Finger] Normal Normal Normal Respiratory Rate 20 20 20 Respiratory Effort / Characteristics Non-Labored Non-Labored Non-Labored Respiratory Depth Normal Normal Normal Respiratory Pattern Regular Regular Regular Blood Pressure Blood Pressure [Left Arm] 151/90 H 152/99 H 146/98 H Blood Pressure Mean Blood Pressure Mean [Left Arm] 110 116 114 Blood Pressure Position Blood Pressure Position [Left Arm] Sitting Sitting Sitting Pulse Oximetry 91 89 L 85 L Oxygen Delivery Method Room Air Room Air Room Air Sepsis Recent Fever Within 48 Hours Sepsis New/Unexplained Change in Mental Status Sepsis Action Taken by Nursing 07/06/21 13:30 07/06/21 13:45 07/06/21 14:00 Temperature Temperature Source Pulse Rate Pulse Rate [Right Finger] 95 H 87 87 Pulse Rate from SpO2 Sensor Pulse Rhythm [Right Finger] Regular Regular Regular Pulse Strength [Right Finger] Normal Normal Normal Respiratory Rate 20 18 18 Respiratory Effort / Characteristics Non-Labored Non-Labored Non-Labored Respiratory Depth Normal Normal Normal Respiratory Pattern Regular Regular Regular Blood Pressure Blood Pressure [Left Arm] 145/95 H 151/95 H 148/103 H Blood Pressure Mean Blood Pressure Mean [Left Arm] 111 113 118 Blood Pressure Position Blood Pressure Position [Left Arm] Sitting Sitting Sitting Pulse Oximetry 92 96 96 Oxygen Delivery Method Room Air Room Air Room Air Sepsis Recent Fever Within 48 Hours Sepsis New/Unexplained Change in Mental Status Sepsis Action Taken by Nursing 07/06/21 14:15 07/06/21 14:30 Temperature Temperature Source Pulse Rate Pulse Rate [Right Finger] 82 82 Pulse Rate from SpO2 Sensor Pulse Rhythm [Right Finger] Regular Regular Pulse Strength [Right Finger] Normal Normal Respiratory Rate 18 18 Respiratory Effort / Characteristics Non-Labored Non-Labored Respiratory Depth Normal Normal Respiratory Pattern Regular Regular Blood Pressure Blood Pressure [Left Arm] 152/88 H 156/92 H Blood Pressure Mean Blood Pressure Mean [Left Arm] 109 113 Blood Pressure Position Blood Pressure Position [Left Arm] Sitting Sitting Pulse Oximetry 96 96 Oxygen Delivery Method Room Air Room Air Sepsis Recent Fever Within 48 Hours Sepsis New/Unexplained Change in Mental Status Sepsis Action Taken by [facility] Medications Current Medication List: was personally reviewed by me Laboratory Data Attestation: I reviewed the patient's lab results. Result diagrams: 07/06/21 Unknown 07/06/21 Unknown Lab Results 07/06/21 07/06/21 07/06/21 Range/Units 11:02 11:02 11:05 WBC (4.8-10.8) K/uL RBC (4.7-6.1) M/uL Hgb (14.0-18.0) g/dL POC Hgb 16.3 (14.0-18.0) g/dl Hct (42-52) % POC Hct 48 (42-52) % MCV (80-100) fL MCH (25-34) pg MCHC (32-36) g/dL RDW Std Deviation (36.4-46.3) fL RDW Coeff of Elena (11.5-14.5) % Plt Count (130-400) K/uL MPV (7.4-10.4) fL Immature Gran % (Auto) % Neut % (Auto) % Lymph % (Auto) % [place] % (Auto) % Eos % (Auto) % Baso % (Auto) % Neut # (Auto) (1.4-6.5) K/uL Lymph # (Auto) (1.2-3.4) K/uL [place] # (Auto) (0.11-0.59) K/uL Eos # (Auto) (0-0.5) K/uL Baso # (Auto) (0-0.2) K/uL Immature Gran # (Auto) (0.00-0.02) K/uL PT (9.0-12.0) Seconds INR (0.9-1.1) APTT (21.0-31.0) Seconds PTT Ratio Activ Coag Time Kaolin (94-140) SECONDS POC Sodium 139 (135-144) mmol/L Sodium (136-145) mmol/L POC Potassium 2.4 L* (3.3-5.0) mmol/L Potassium (3.5-5.1) mmol/L POC Chloride 94 L (101-112) mmol/L Chloride (98-107) mmol/L Carbon Dioxide (21-32) mmol/L POC Total CO2 26 (24-31) mmol/L Anion Gap (3-11) POC Anion Gap 23.0 (16-25) mmol/L POC BUN 5 L (7-18) mg/dl BUN (7-18) mg/dl Creatinine (0.6-1.4) mg/dl POC Creatinine 0.8 (0.6-1.3) mg/dl Est Cr Clr Drug Dosing ml/min Est GFR ( Amer) ml/min Est GFR (Non-Af Amer) ml/min BUN/Creatinine Ratio (10-20) Glucose (70-99) mg/dl POC Glucose (other) 168 H (70-99) mg/dl Calcium (8.5-10.1) mg/dl POC Ioniz Calcium Roseann 1.14 (1.12-1.32) mmol/l Magnesium (1.8-2.4) mg/dl Total Bilirubin (0.2-1) mg/dl AST (15-37) U/L ALT (12-78) U/L Alkaline Phosphatase (45-117) U/L Troponin I (0-0.045) ng/ml Total Protein (6.4-8.2) gm/dl Albumin (3.4-5.0) gm/dl Globulin (2.5-4.0) gm/dl Albumin/Globulin Ratio (0.9-2) Lipase (73-393) U/L COVID-19 Eval Order Covid19 at [facility] SARS-CoV-2 (PCR) NEGATIVE (Negative) 07/06/21 07/06/21 07/06/21 Range/Units 12:06 Unknown Unknown WBC 8.94 (4.8-10.8) K/uL RBC 4.91 (4.7-6.1) M/uL Hgb 16.5 (14.0-18.0) g/dL POC Hgb (14.0-18.0) g/dl Hct 46.4 (42-52) % POC Hct (42-52) % MCV 94.5 (80-100) fL MCH 33.6 (25-34) pg MCHC 35.6 (32-36) g/dL RDW Std Deviation 45.3 (36.4-46.3) fL RDW Coeff of Elena 13.2 (11.5-14.5) % Plt Count 244 (130-400) K/uL MPV 9.8 (7.4-10.4) fL Immature Gran % (Auto) 0.2 % Neut % (Auto) 58.8 % Lymph % (Auto) 28.0 % [place] % (Auto) 10.2 % Eos % (Auto) 2.2 % Baso % (Auto) 0.6 % Neut # (Auto) 5.26 (1.4-6.5) K/uL Lymph # (Auto) 2.50 (1.2-3.4) K/uL [place] # (Auto) 0.91 H (0.11-0.59) K/uL Eos # (Auto) 0.20 (0-0.5) K/uL Baso # (Auto) 0.05 (0-0.2) K/uL Immature Gran # (Auto) 0.02 (0.00-0.02) K/uL PT 10.0 (9.0-12.0) Seconds INR 1.0 (0.9-1.1) APTT 23.8 (21.0-31.0) Seconds PTT Ratio 0.9 Activ Coag Time Kaolin 186 H (94-140) SECONDS POC Sodium (135-144) mmol/L Sodium (136-145) mmol/L POC Potassium (3.3-5.0) mmol/L Potassium (3.5-5.1) mmol/L POC Chloride (101-112) mmol/L Chloride (98-107) mmol/L Carbon Dioxide (21-32) mmol/L POC Total CO2 (24-31) mmol/L Anion Gap (3-11) POC Anion Gap (16-25) mmol/L POC BUN (7-18) mg/dl BUN (7-18) mg/dl Creatinine (0.6-1.4) mg/dl POC Creatinine (0.6-1.3) mg/dl Est Cr Clr Drug Dosing ml/min Est GFR ( Amer) ml/min Est GFR (Non-Af Amer) ml/min BUN/Creatinine Ratio (10-20) Glucose (70-99) mg/dl POC Glucose (other) (70-99) mg/dl Calcium (8.5-10.1) mg/dl POC Ioniz Calcium Roseann (1.12-1.32) mmol/l Magnesium (1.8-2.4) mg/dl Total Bilirubin (0.2-1) mg/dl AST (15-37) U/L ALT (12-78) U/L Alkaline Phosphatase (45-117) U/L Troponin I (0-0.045) ng/ml Total Protein (6.4-8.2) gm/dl Albumin (3.4-5.0) gm/dl Globulin (2.5-4.0) gm/dl Albumin/Globulin Ratio (0.9-2) Lipase (73-393) U/L COVID-19 Eval Order SARS-CoV-2 (PCR) (Negative) 07/06/21 07/06/21 Range/Units Unknown Unknown WBC (4.8-10.8) K/uL RBC (4.7-6.1) M/uL Hgb (14.0-18.0) g/dL POC Hgb (14.0-18.0) g/dl Hct (42-52) % POC Hct (42-52) % MCV (80-100) fL MCH (25-34) pg MCHC (32-36) g/dL RDW Std Deviation (36.4-46.3) fL RDW Coeff of Elena (11.5-14.5) % Plt Count (130-400) K/uL MPV (7.4-10.4) fL Immature Gran % (Auto) % Neut % (Auto) % Lymph % (Auto) % [place] % (Auto) % Eos % (Auto) % Baso % (Auto) % Neut # (Auto) (1.4-6.5) K/uL Lymph # (Auto) (1.2-3.4) K/uL [place] # (Auto) (0.11-0.59) K/uL Eos # (Auto) (0-0.5) K/uL Baso # (Auto) (0-0.2) K/uL Immature Gran # (Auto) (0.00-0.02) K/uL PT (9.0-12.0) Seconds INR (0.9-1.1) APTT (21.0-31.0) Seconds PTT Ratio Activ Coag Time Kaolin (94-140) SECONDS POC Sodium (135-144) mmol/L Sodium 137 (136-145) mmol/L POC Potassium (3.3-5.0) mmol/L Potassium 2.4 L* (3.5-5.1) mmol/L POC Chloride (101-112) mmol/L Chloride 99 (98-107) mmol/L Carbon Dioxide 27 (21-32) mmol/L POC Total CO2 (24-31) mmol/L Anion Gap 10.0 (3-11) POC Anion Gap (16-25) mmol/L POC BUN (7-18) mg/dl BUN 7 (7-18) mg/dl Creatinine 1.00 (0.6-1.4) mg/dl POC Creatinine (0.6-1.3) mg/dl Est Cr Clr Drug Dosing 121.6 ml/min Est GFR ( Amer) 99.8 ml/min Est GFR (Non-Af Amer) 86.2 ml/min BUN/Creatinine Ratio 6.5 L (10-20) Glucose 169 H (70-99) mg/dl POC Glucose (other) (70-99) mg/dl Calcium 9.1 (8.5-10.1) mg/dl POC Ioniz Calcium Roseann (1.12-1.32) mmol/l Magnesium 1.7 L (1.8-2.4) mg/dl Total Bilirubin 0.7 (0.2-1) mg/dl AST 46 H (15-37) U/L ALT 53 (12-78) U/L Alkaline Phosphatase 63 (45-117) U/L Troponin I 0.711 H* (0-0.045) ng/ml Total Protein 7.8 (6.4-8.2) gm/dl Albumin 3.8 (3.4-5.0) gm/dl Globulin 4.0 (2.5-4.0) gm/dl Albumin/Globulin Ratio 1.0 (0.9-2) Lipase 270 (73-393) U/L COVID-19 Eval Order SARS-CoV-2 (PCR) (Negative) Administered Medications Lisinopril (Lisinopril 10 Mg Tab) 10 mg PO QAM [facility] Stop: 08/05/21 12:44 Last Admin: 07/06/21 14:21 Dose: 10 mg Documented by: [id number] Metoprolol Tartrate (Metoprolol Tartrate 25 Mg Tab) 25 mg PO BID MADELAINE Stop: 08/05/21 12:44 Last Admin: 07/06/21 14:21 Dose: 25 mg Documented by: [id number] Potassium Chloride (Potassium Chloride Crtab 20 Meq Tabcr) 20 meq PO BID MADELAINE Stop: 08/05/21 12:59 Last Admin: 07/06/21 14:21 Dose: 20 meq Documented by: [id number] Discontinued Medications Aspirin (Aspirin Chew 324 Mg) 324 mg PO NOW STA Stop: 07/06/21 10:54 Last Admin: 07/06/21 10:59 Dose: 324 mg Documented by: [id number] Fentanyl Citrate (Fentanyl Citrate 100 Mcg/2 Ml Vial) Confirm Administered Dose 100 mcg .ROUTE .STK-MED ONE Stop: 07/06/21 11:08 Last Increment: 07/06/21 12:09 Dose: 75 mcg Documented by: [id number] Heparin Sodium (Porcine) (Heparin Sod (Porcine) 1000 Unit/Ml) Confirm Administered Dose 1,000 units .ROUTE .STK-MED ONE Stop: 07/06/21 11:06 Last Admin: 07/06/21 12:08 Dose: 15,000 units Documented by: [id number] Cosigned by: [id number] Heparin Sodium (Porcine) (Heparin (Porcine) 1000 Unit/Ml 10 Ml (Marine Resource Economist Use Only)) Confirm Administered Dose 10,000 units .ROUTE .STK-MED ONE Stop: 07/06/21 11:08 Last Admin: 07/06/21 12:10 Dose: Not Given Documented by: [id number] Heparin Sodium (Porcine) (Heparin (Porcine) 1000 Unit/Ml 10 Ml (Marine Resource Economist Use Only)) Confirm Administered Dose 10,000 units .ROUTE .STK-MED ONE Stop: 07/06/21 11:48 Last Admin: 07/06/21 12:11 Dose: Not Given Documented by: [id number] Heparin Sodium/Sodium Chloride (Heparin In Nss Infusion 1000 Unit/500 Ml (2 U/Ml) Bag) Confirm Administered Dose 3,000 units IV .STK-MED ONE Stop: 07/06/21 11:09 Last Admin: 07/06/21 12:10 Dose: 3,000 units Documented by: [id number] Sodium Chloride (Nss 1000ml) 500 mls @ 999 mls/hr IV .Q31M ONE Stop: 07/06/21 11:33 Last Admin: 07/06/21 11:05 Dose: 999 mls/hr Documented by: [id number] Lisinopril (Lisinopril 5 Mg Tab) Confirm Administered Dose 10 mg PO .STK-MED ONE Stop: 07/06/21 14:00 Last Admin: 07/06/21 14:22 Dose: Not Given Documented by: [id number] Metoprolol Tartrate (Metoprolol Tartrate 1 Mg/Ml Vial) 5 mg IV NOW STA Stop: 07/06/21 11:04 Last Admin: 07/06/21 11:05 Dose: 5 mg Documented by: [id number] Metoprolol Tartrate (Metoprolol Tartrate 1 Mg/Ml Vial) Confirm Administered Dose 5 mg IV .STK-MED ONE Stop: 07/06/21 11:05 Last Admin: 07/06/21 11:06 Dose: Not Given Documented by: [id number] Midazolam HCl (Midazolam Hcl 1 Mg/Ml 2ml Vial) Confirm Administered Dose 2 mg .ROUTE .STK-MED ONE Stop: 07/06/21 11:08 Last Admin: 07/06/21 12:10 Dose: 2 mg Documented by: [id number] Nicardipine HCl (Nicardipine Hcl Inj 2.5 Mg/Ml 10 Ml Amp) Confirm Administered Dose 25 mg .ROUTE .STK-MED ONE Stop: 07/06/21 11:08 Last Admin: 07/06/21 12:10 Dose: 25 mg Documented by: [id number] Nitroglycerin/Dextrose (Nitroglycerin/D5w 100mcg/Ml 20ml Syr) Confirm Administered Dose 2,000 mcg .ROUTE .STK-MED ONE Stop: 07/06/21 11:09 Last Admin: 07/06/21 12:10 Dose: 2,000 mcg Documented by: [id number] Potassium Chloride (Potassium Chloride 10 Meq / 100ml Wtr) Confirm Administered Dose 20 meq IV .STK-MED ONE Stop: 07/06/21 12:25 Last Admin: 07/06/21 12:45 Dose: 20 meq Documented by: [id number] Ticagrelor (Ticagrelor 90 Mg Tab) Confirm Administered Dose 180 mg PO .STK-MED ONE Stop: 07/06/21 11:06 Last Admin: 07/06/21 11:46 Dose: Not Given Documented by: [id number] Ticagrelor (Ticagrelor 90 Mg Tab) Confirm Administered Dose 180 mg PO .STK-MED ONE Stop: 07/06/21 12:16 Last Admin: 07/06/21 12:45 Dose: 180 mg Documented by: [id number] Imaging Data Radiologist's Impression: Chest X-Ray 07/06/21 10:53 XR chest 1V portable CLINICAL HISTORY: Chest Pain COMPARISON STUDY: Chest radiograph and chest CT February 06, 2018. FINDINGS: Lung volumes are normal. Lungs are clear. There is no pneumothorax or pleural effusion. Mild cardiomegaly is unchanged. Mediastinal contours are normal. There is no evidence for pulmonary edema. IMPRESSION: No acute cardiopulmonary findings. Cardiomegaly. ACT 112: Negative or not required by law. Electronically signed by: Bala Ely M.D. 07/06/2021 11:35 AM Discharge Plan Visit Data Chief Complaint: Chest Pain Stated Complaint: CHEST PAIN ED Provider: Abdiaziz Watkins Discharge Problem: Acute [place], inferior wall, Chest pain Patient Disposition: Admitted As Inpatient Condition: Good Discharge Instructions Interventions: ED Discharge Assessment Last Done: 07/06/21 11:20 Forms Stand Alone Forms: [employer] Prescriptions Prescriptions: No Action allopurinol 100 mg tablet 200 mg PO DAILY Qty: 60 RF: 2 cholecalciferol (vitamin D3) 2,000 unit capsule 10,000 units PO QAM RF: 0 fluticasone propionate 50 mcg/actuation spray,suspension See Patient Comments sprays intranasal DAILY PRN (Reason: allergy symptoms) RF: 0 amlodipine 10 mg tablet 10 mg PO DAILY Qty: 30 RF: 11 chlorthalidone 25 mg tablet 25 mg PO QAM Qty: 30 RF: 11 colchicine 0.6 mg tablet See Patient Comments mg PO .COMPLEX PRN (Reason: gout) Qty: 3 RF: 5 metoprolol succinate 50 mg tablet extended release 24 hr 50 mg PO QAM Qty: 30 RF: 11 prednisone 50 mg tablet 50 mg PO DAILY Qty: 5 RF: 2 potassium chloride 20 mEq tablet extended release 20 meq PO DAILY Qty: 30 RF: 5 aspirin 81 mg tablet,delayed release (DR/EC) 81 mg PO QAM RF: 0 Referrals Referrals: Bronwyn George MD [Primary Care Provider] -
[2021-07-06 11:12] LABS: Basophils # (auto) 0.05 K/uL (0-0.2); Basophils % (auto) 0.6 %; Eosinophils % (auto) 2.2 %; Hematocrit (blood only) 46.4 % (42-52); Hemoglobin 16.5 g/dL (14.0-18.0); Immature Granulocytes # (auto) 0.02 K/uL (0.00-0.02); Immature Granulocytes % (auto) 0.2 %; Mean Corpuscular Hemoglobin 33.6 pg (25-34); Mean Corpuscular Hgb Conc 35.6 g/dL (32-36); Mean Corpuscular Volume 94.5 fL (80-100); Mean Platelet Volume 9.8 fL (7.4-10.4); Monocytes # (auto) 0.91 K/uL (0.11-0.59); Monocytes % (auto) 10.2 %; Neutrophils # (auto) 5.26 K/uL (1.4-6.5); Neutrophils % (auto) 58.8 %; Platelet Count 244 K/uL (130-400); RDW Coefficient of Variation 13.2 % (11.5-14.5); RDW Standard Deviation 45.3 fL (36.4-46.3); Red Blood Count 4.91 M/uL (4.7-6.1); White Blood Count 8.94 K/uL (4.8-10.8)
[2021-07-06 11:17] LABS: iSTAT Creatinine 0.8 mg/dl (0.6-1.3); iSTAT Hemoglobin 16.3 g/dl (14.0-18.0); iSTAT Ionized Calcium 1.14 mmol/l (1.12-1.32); iSTAT Potassium 2.4 mmol/L (3.3-5.0)
[2021-07-06 11:29] LABS: Partial Thromboplastin Ratio 0.9; Partial Thromboplastin Time 23.8 Seconds (21.0-31.0)
--- NOTE | 2021-07-06 11:37 | XRay Report ---
XR chest 1V portable CLINICAL HISTORY: Chest Pain COMPARISON STUDY: Chest radiograph and chest CT February 06, 2018. FINDINGS: Lung volumes are normal. Lungs are clear. There is no pneumothorax or pleural effusion. Mil d cardiomegaly is unchanged. Mediastinal contours are normal. There is no evidence for pulmonary zeina a. IMPRESSION: No acute cardiopulmonary findings. Cardiomegaly. ACT 112: Negative or not required by law. Electronically signed by: Bala Ely M.D. 07/06/2021 11:35 AM
[2021-07-06 11:52] LABS: Albumin Level 3.8 gm/dl (3.4-5.0); BUN Creatinine Ratio 6.5 (10-20); Bilirubin,Total 0.7 mg/dl (0.2-1); Calcium 9.1 mg/dl (8.5-10.1); Creatinine Clr Calc Pharmacy 121.6 ml/min; Est GFR (African American) 99.8 ml/min; Est GFR (Non-African American) 86.2 ml/min; Potassium 2.4 mmol/L (3.5-5.1); Total Protein 7.8 gm/dl (6.4-8.2); Troponin I 0.711 ng/ml (0-0.045)
[2021-07-06] MEDS ORDERED: POTASSIUM CHLORIDE 10 MEQ / 100ML WTR IV ONE (12:24)
--- NOTE | 2021-07-06 12:27 | Pre Anesthesia Assessment ---
Date of Service July 06, 2021 Pre Sedation Assessment Vital Signs Temp Pulse Resp BP Pulse Ox 07/06/21 11:11 97 H 22 161/91 H 07/06/21 11:10 98 07/06/21 11:05 103 H 166/103 H 07/06/21 11:01 105 H 20 166/103 H 96 07/06/21 10:46 98.2 F 105 H 18 182/99 H 97 Cardiovascular RRR, no murmur, no edema Respiratory normal respiratory effort, lungs clear to auscultation Pre-Sedation Airway Assessment Smoking Status: Current every day smoker Hx Sleep Apnea: No Hx Difficult Intubation: No Short, Thick Neck: No Thyromental Distance: > or= 3.5 Finger Breadths Oral Cavity: + WNL Mallampati Class: III ASA: ASA4 Procedure Planning Contraindications for Sedation: none Current Medications Reviewed: Yes Notes The planned sedation has been discussed with the patient. Informed Consent was obtained. I have identified the patient, determined the appropriateness of sedation and have assessed the patient immediately prior to the procedure. All medicine(s) and interventions are by my order.
--- NOTE | 2021-07-06 12:28 | Post Anesthesia Assessment ---
Date of Service July 06, 2021 Post Sedation Assessment Vital Signs Temp Pulse Resp BP Pulse Ox 07/06/21 11:11 97 H 22 161/91 H 07/06/21 11:10 98 07/06/21 11:05 103 H 166/103 H 07/06/21 11:01 105 H 20 166/103 H 96 07/06/21 10:46 98.2 F 105 H 18 182/99 H 97 Recovery Score Activity: Moves 4 extremities Respiration: Deep Breath/Cough Circulation: +/-20% PreAnes Value Consciousness: Fully Awake Oxygen Saturation: O2 needed for >90% Discharge Sedation Level of Care: Fast Track Phase II Post Sedation Plan On clinical assessment, the patient appears to have tolerated the sedation wi thout complications. Patient is recovering as anticipated. Patient will continue to be monitored by nursing and may be discharged when sedation discharge criteria are met per below protocol. Upon Completions of procedure up to 15 minutes continue every 5 minute vital signs and the P.A.R. score; then discharge to a Phase I or Fast Track to Phase II per the following guidelines: * Discharge Patient to appropriate Phase II area if PAR is 8 or greater or return to pre- procedure baseline. The post - procedure orders will be as directed. * If PAR score is less than 8 or not return to pre-procedure baseline then patient will follow Phase I monitoring till PAR is reached for Phase II. The Phase I may be done in procedure room or may call to secure a Phase I area. * If naloxone or flumazenil are used for reversal, hold in Phase I for continued monitoring from when last reversal dose was given for a minimum of 60 minutes or longer pending the nurse and/or physician discretion of patient condition before discharge to Phase II. Please call the Sedation Physician to re-evaluate and complete post-note for discharge to Phase II area. Do NOT discharge from procedure sedation or Phase 1 until post- sedation evaluation note is complete by procedure /sedation MD Sedation Discharge Instructions to be given to the patient at discharge to home.
--- NOTE | 2021-07-06 12:41 | Cardiology Consultation ---
Date of Consultation July 06, 2021 Assessment & Plan (1) Acute coronary syndrome: Presentation concerning for ACS and recommend proceeding with urgent cardiac catheterization and likely possible PCI. No apparent contraindications to procedure. Discussed risks, benefits, alternatives of procedure with patient and they are willing to proceed. Further recommendations pending findings of coronary angiography. History of Present Illness History of Present Illness 50-year-old man here with acute chest pain, abnormal ECG and mildly elevated troponin concerning for ACS. Patient seen emergently in the ED after heart alert activated on arrival. No prior cardiac history. Cardiac risk factors include hypertension, tobacco abuse, family history of premature CAD. Other medical issues include hypokalemia, gout, osteoarthritis. Chest pain began approximately 2 to 3 hours prior to arrival. Describes aching substernal pain radiating down his right arm. Had 1 similar episode approximately a week ago at night that went away after 20 to 30 minutes. Hypertensive on arrival. ECG showed sinus tachycardia with subtle inferior ST elevations. Initial troponin 0.711. Family history: Father had stents in his 50s. Social history: Smoked 1 pack/day since age 16. Lives alone. Heavy alcohol use is previously been documented Allergies Allergy/AdvReac Type Severity Reaction Status Date / Time No Known Allergies Allergy Verified 01/12/21 13:17 Home Medications Medication Instructions Recorded Confirmed Type cholecalciferol (vitamin D3) 50 10,000 units PO QAM cap 04/15/19 01/12/21 History mcg (2,000 unit) capsule fluticasone propionate 50 See Rx Instructions INTRANASAL 07/20/19 01/12/21 History mcg/actuation nasal DAILY PRN gm spray,suspension aspirin 81 mg tablet,delayed 81 mg PO QAM 07/21/19 01/12/21 History release amlodipine 10 mg tablet 10 mg PO DAILY #30 tab 01/12/21 01/12/21 Rx chlorthalidone 25 mg tablet 25 mg PO QAM #30 tab 01/12/21 01/12/21 Rx colchicine 0.6 mg tablet See Rx Instructions PO .COMPLEX 01/12/21 01/12/21 Rx PRN #3 tab metoprolol succinate 50 mg 50 mg PO QAM #30 tab 01/12/21 01/12/21 Rx tablet,extended release 24 hr potassium chloride 20 mEq 20 meq PO DAILY #30 tab 01/12/21 01/12/21 Rx tablet,extended release prednisone 50 mg tablet 50 mg PO DAILY #5 tab 01/12/21 01/12/21 Rx allopurinol 100 mg tablet 200 mg PO DAILY #60 tab 04/24/21 Rx Patient History Medical History (Updated 07/06/21 @ 12:33 by John Schofield MD) Abdominal pain Alcohol abuse Gout HTN (hypertension) Tobacco abuse Surgical History History of cholecystectomy FALL 2017 [facility] History of tooth extraction Family History Father Cancer Social History Smoking Status: Current every day smoker Tobacco Type: Cigarettes Cigarettes Per Day: 1 PPD SINCE AGE 16; Second Hand Exposure: No; Hx Alcohol Use: Yes Alcohol type: hard liquor Hx Substance Use: No Preferred Language: Tamaz[place] Communication Ability: Effective Visual Impairment: No Limitations Rn Plastic Surgery Required: No Beliefs That Will Affect Care: None Current Living Situation: Alone Current Living Situation Comment: has roommate Feels Safe at Home: Yes Assistive Devices: Glasses Review of Systems Review of Systems: Not obtained in emergent situation Physical Exam Physical Exam: General: Comfortable HEENT: Sclerae anicteric Lungs: Clear to auscultation bilaterally Cardiac: Regular rate and rhythm Vascular: 2+ radial Abdomen: Soft, nontender Extremities: Well perfused, no peripheral edema Neuro: Nonfocal Psych: Alert orient x3, normal affect and mood Results & Data ([facility]) Vital Signs (Past 12 Hours) Vital Signs Temp Pulse Resp BP Pulse Ox 07/06/21 11:11 97 H 22 161/91 H 07/06/21 11:10 98 07/06/21 11:05 103 H 166/103 H 07/06/21 11:01 105 H 20 166/103 H 96 07/06/21 10:46 98.2 F 105 H 18 182/99 H 97 PG Care Time/CCT Total # of Minutes Spent Total Time Spent with Patient: Total time spent is greater than 50% in coordination of care (as documented) at patient's floor/unit and/or counseling patient: Coding Level of Care Code 03926 Inpt Consult Level 5 Diagnoses Acute coronary syndrome I24.9
[2021-07-06] MEDS ORDERED: NITROGLYCERIN SL 0.4 MG/TAB TAB SL PRN (12:42)
[2021-07-06] MEDS ORDERED: ONDANSETRON INJ 2 MG/ML 2 ML VIAL IV PRN (12:42)
[2021-07-06] MEDS ORDERED: ACETAMINOPHEN 325 MG TAB PO PRN (12:42)
--- NOTE | 2021-07-06 12:51 | Post Operative Brief Note ---
Cardiology Brief Post Op Date of Surgery July 06, 2021 Pre & Post Diagnosis Operation Date: 07/06/21 11:15 <No data on this case meets the specified criteria> Procedure cardiac cath 95% acute distal RCA PCI to distal RCA with single EDUARD (3.0 x 18 [place]). Head Shipper Dmitri Schofield MD Blender Machine Operator Ruddy Estimated Blood Loss 10 Findings See Below 95% acute distal RCA Complications none Disposition Accompanied Patient To Recovery: No Disposition: PCU Overlapping Procedure I was present for: the critical portions of procedure. I was immediately available: during the entire case. Back up surgeon: was not required during procedure.
[2021-07-06] MEDS ORDERED: lisinopril 5 MG TAB PO ONE (13:59)
[2021-07-06] MEDS ORDERED: POTASSIUM CHLORIDE 40 MEQ in SODIUM CHLORIDE 0.9% 1000ML 1,000 ML IV SCH (14:00)
[2021-07-06] MEDS: METOPROLOL TARTRATE 25 MG TAB PO SCH ×2 (14:21→20:09)
[2021-07-06] MEDS: lisinopril 10 MG TAB PO SCH (14:21)
[2021-07-06] MEDS: POTASSIUM CHLORIDE CRTAB 20 MEQ TABCR PO SCH ×2 (14:21→20:09)
--- NOTE | 2021-07-06 17:54 | Cardiac Catheterization ---
[facility] Data: Gifts Officer Cardiac Status Clinical evaluation leading to the procedure CAD Presenation: Non STEMI Anginal Classification: CCS IV Heart Failure: No Cardiogenic Shock within 24 Hours: No Cardiac Arrest within 24 Hours: No Imaging Studies Past 6 Months: No Stress Studies Past 6 Months: No Diagnostic Physicians Name: Dmitri Schofield MD Status: Urgent Closure Device Percutaneous Entry Location: Radial Closure Device: Radial Band Recommendations: PCI without planned CABG PCI Indication: PCI for high risk Non-KHADIJAH Lesion Segment Name: Right posterior AV branch Culprit Artery: Yes Stenosis Prior to Rx (%): 95 Chronic Total Occlusion: No IVUS: No FFR: No Pre-Procedure TUTU Flow: 2 Previously Treated Lesion: No Lesion Complexity: Non-High/Non-C Lesion Length (mm): 15 Thrombus Present: Yes Bifurcation Lesion: No Guidewire Across Lesion: Stenosis Post-Procedure (%): 0 Post-Procedure TUTU Flow: 3 Devices(s) Deployed: Yes Yes Cardiac Cath Procedure Full Procedure Date July 06, 2021 Pre-Procedure Diagnosis Pre-Procedure Diagnosis: Non STEMI AUC Score AUC Score: 8 Post-Procedure Diagnosis Post-Procedure Diagnosis: Severe CAD Procedure(s) Performed Procedure(s) Performed: Coronary Angiography, Left Heart Cath and Drug Eluting Stent Painting Manager Dmitri Schofield MD Jewel Hole Finish Opener(s) Ruddy Estimated Blood Loss Estimated Blood Loss: 15 Medication(s) Medication(s): Fentanyl, Heparin, Lidocaine 1%, Nicardipine, Nitroglycerin and Versed Medication(s): Ticagrelor Summary of Findings Indication: Acute coronary syndrome Access: 6 Fr right radial artery Catheters: Slaughters, JR4 guide, telescope support catheter Findings: LM -large caliber, no significant disease LAD -large caliber, tortuous, 20 to 30% proximal to mid disease, remainder of vessel without significant disease and distal vessel wraps around apex. Circumflex -large caliber, tortuous, no significant disease RCA -dominant, large caliber, 40% mid segment disease, 30% distal just before takeoff of PDA, 95% acute stenosis in right posterior AV branch. PDA, distal P LB without significant disease. LVEDP -7 -- PCI -- Antithrombotic therapy: Heparin, ticagrelor Procedure: RCA cannulated with JR4 guide with telescope support catheter Car Blocker 50 wire passed across lesion into distal right PLB Prowater wire placed into right PDA Right posterior AV branch lesion predilated with 2.5 compliant balloon Dilated lesion stented with 3.0 x 18 mm James drug-eluting stent beginning just after takeoff of PDA Stent post-dilated with stent balloon IC vasodilators administered for spasm Post procedure TUTU 3 flow, stent well expanded with minimal residual stenosis and no apparent cardiac complications. Arterial Closure: TR band Summary: 1. 95% acute right posterior AV branch stenosis with TUTU 2 distal flow. 2. Mild nonculprit coronary artery disease 40% mid RCA 20 to 30% proximal mid LAD 3. Normal intracardiac filling pressure 4. Successful PCI of right posterior AV branch with single drug-eluting stent (3.0 x 18 mm [place]). Recommendations: To PCU for continued monitoring Loaded with ticagrelor 180 mg in Gifts Officer Continue dual-antiplatelet therapy for at least 1 year Continue statin, and ASCVD risk factor modification Consult cardiac Rehab Hemodynamics Rest Ao:: 111/75/90 Final Ao: 119/79/96 LV: 112/7 Recommendations Recommendations: PCI without planned CABG Specimens Specimens: None Radiation Exposure (mGy) 2539 Contrast (mls) 120 Fluids (cc crystalloids) Fluids (cc crystalloids): 140 Drains Drains: None Anesthesia Moderate 8982-7159 Procedural Complication(s) None Disposition PCU I attest to the content of the Intraoperative Record and any orders documented therein. Any exceptions are noted below. [facility] Card Cath Procedure Codes Cardiac Catheterization Procedure 1: Cardiovascular Cath Procedures: 81744 Coronaries and LHC (+/-LV) Moderate Sedation Procedure 1: Sedation/Anesthesia: 20416 Mod Sedation by the same physician;Init15 Min Child Age 5 & Up Procedure 2: Sedation/Anesthesia: 47919 Mod Sedation by the same physician; Ea [id number] Minutes Stenting Procedure 1: Cardiovascular Stent Procedures: 55939 Perc transluminal revascularization of acute sub/total occl, aMI PG Care Time/CCT Total # of Minutes Spent Total Time Spent with Patient: Total time spent is greater than 50% in coordination of care (as documented) at patient's floor/unit and/or counseling patient:
[2021-07-06] MEDS: TICAGRELOR 90 MG TAB PO SCH (23:05)
[2021-07-07 05:09] LABS: Basophils # (auto) 0.04 K/uL (0-0.2); Basophils % (auto) 0.4 %; Eosinophils # (auto) 0.24 K/uL (0-0.5); Eosinophils % (auto) 2.6 %; Hematocrit (blood only) 42.3 % (42-52); Hemoglobin 14.7 g/dL (14.0-18.0); Immature Granulocytes # (auto) 0.02 K/uL (0.00-0.02); Immature Granulocytes % (auto) 0.2 %; Lymphocytes # (auto) 2.13 K/uL (1.2-3.4); Lymphocytes % (auto) 23.4 %; Mean Corpuscular Hemoglobin 32.7 pg (25-34); Mean Corpuscular Hgb Conc 34.8 g/dL (32-36); Mean Corpuscular Volume 94.2 fL (80-100); Mean Platelet Volume 9.8 fL (7.4-10.4); Monocytes # (auto) 1.04 K/uL (0.11-0.59); Monocytes % (auto) 11.4 %; Neutrophils # (auto) 5.62 K/uL (1.4-6.5); Platelet Count 197 K/uL (130-400); RDW Coefficient of Variation 13.3 % (11.5-14.5); RDW Standard Deviation 45.3 fL (36.4-46.3); Red Blood Count 4.49 M/uL (4.7-6.1); White Blood Count 9.09 K/uL (4.8-10.8)
[2021-07-07 05:42] LABS: BUN Creatinine Ratio 7.3 (10-20); Blood Urea Nitrogen 6 mg/dl (7-18); Calcium 8.6 mg/dl (8.5-10.1); Carbon Dioxide 32 mmol/L (21-32); Chloride 102 mmol/L (98-107); Chol HDL Ratio 6; Cholesterol 151 mg/dl (0-200); Creatinine Clr Calc Pharmacy 146.5 ml/min; Est GFR (African American) 117.8 ml/min; Est GFR (Non-African American) 101.7 ml/min; Glucose 113 mg/dl (70-99); HDL Cholesterol 26 mg/dl; LDL Cholesterol Direct 72 mg/dl; Potassium 2.8 mmol/L (3.5-5.1); Sodium 140 mmol/L (136-145); Triglycerides 285 mg/dl (0-150); VLDL Cholesterol 57 mg/dl
[2021-07-07 07:46] LABS: Estimated Average Glucose 126 mg/dl
[2021-07-07] MEDS ORDERED: POTASSIUM CHLORIDE CRTAB 20 MEQ TABCR PO STA (07:48)
[2021-07-07] MEDS: METOPROLOL TARTRATE 25 MG TAB PO SCH (08:35)
[2021-07-07] MEDS: lisinopril 10 MG TAB PO SCH (08:35)
[2021-07-07] MEDS: TICAGRELOR 90 MG TAB PO SCH (08:36)
[2021-07-07] MEDS ORDERED: SPIRONOLACTONE 25 MG TAB PO SCH (09:00)
[2021-07-07] MEDS ORDERED: ASPIRIN 81 MG ECTAB PO SCH (09:00)
[2021-07-07] MEDS ORDERED: ATORVASTATIN 40 MG TAB PO SCH (09:00)
--- NOTE | 2021-07-07 11:17 | XCELERA ---
[id number]
--- NOTE | 2021-07-07 17:13 | Electrocardiogram Report ---
Test Reason : Blood Pressure : / mmHG Vent. Rate : 101 BPM Atrial Rate : 101 BPM P-R Int : 178 ms QRS Dur : 102 ms QT Int : 374 ms P-R-T Axes : 048 001 075 degrees QTc Int : 484 ms Sinus tachycardia Nonspecific ST and T wave abnormality Abnormal ECG When compared with ECG of 29-SEP-2018 03:44, Nonspecific T wave abnormality now evident in Anterior leads Confirmed by Ezequiel Agiular ([id number]) on 07/07/2021 5:13:13 PM Referred By: REFERRED SELF Confirmed By:Ezequiel Aguilar
--- NOTE | 2021-07-08 07:05 | Electrocardiogram Report ---
Test Reason : Blood Pressure : / mmHG Vent. Rate : 076 BPM Atrial Rate : 076 BPM P-R Int : 178 ms QRS Dur : 102 ms QT Int : 424 ms P-R-T Axes : 027 000 044 degrees QTc Int : 477 ms Normal sinus rhythm Cannot rule out Inferior infarct , age undetermined Abnormal ECG When compared with ECG of 06-JUL-2021 10:53, (unconfirmed) No significant change was found Confirmed by Ezequiel Aguilar ([id number]) on 07/08/2021 7:04:25 AM Referred By: REFERRED SELF Confirmed By:Ezequiel Aguilar
== END 2021-07-07 12:32 | disposition home or self-care (01) ==
LOC: ED 10:39 → 1E 10:39
DX: I21.4 Non-ST elevation (NSTEMI) myocardial infarction; Z79.82 Long term (current) use of aspirin; F17.210 Nicotine dependence, cigarettes, uncomplicated; I25.118 Atherosclerotic heart disease of native coronary artery with other forms of angina pectoris; Z79.899 Other long term (current) drug therapy; I10 Essential (primary) hypertension